=== PATIENT | female | born 1960 | race Caucasian/White ===

== ENCOUNTER 2021-12-30 09:45 | Outpatient (CLI) | payer OTHER, SELFPAY ==
--- NOTE | ~2021-12-30 | DEXA_ITS ---
Bone Density Report Name: JCARLOS GARCÍA Age: 61 Sex: Female Ethnicity: White Date of : 1960 Indication: postmenopausal; screening for osteoporosis; prior fracture; Referring Provider: MONICA, DREW Massey Study: Bone densitometry was performed. Exam Date: December 30, 2021 Accession number: [id number] Bone Density: Region BMD T-score Z-score Classification AP Spine(L1-L4) 1.006 -0.4 1.3 Normal Femoral Neck (Left) 0.686 -1.5 0.0 Osteopenia Total Hip (Left) 0.838 -0.8 0.3 Normal Femoral Neck (Right) 0.617 -2.1 -0.6 Osteopenia Total Hip (Right) 0.917 -0.2 1.0 Normal Total Hip Mean 0.877 -0.5 0.7 Normal World Health Organization criteria for BMD impression classify patients as: Normal (T-score at or above -1.0), Osteopenia (T-score between -1.0 and -2.5), or Osteoporosis (T-score at or below -2.5). 10-year Fracture Risk: FRAX not reported because: Prior hip or vertebral fracture Previous Exams: Region Exam Age BMD T-score BMD Change BMD Change Date g/cm2 vs Baseline vs Previous AP Spine (L1-L4) 12/30/2021 61 1.006 -0.4 0.029 (3.0%)* 0.029 (3.0%)* 07/19/2014 54 0.977 -0.6 Total Hip(Left) 12/30/2021 61 0.838 -0.8 -0.058 (-6.5%) -0.058 (-6.5%) 07/19/2014 54 0.897 -0.4 Total Hip(Right) 12/30/2021 61 0.917 -0.2 -0.058 (-6.0%) -0.058 (-6.0%) 07/19/2014 54 0.975 0.3 *Denotes significance at 95% confidence level, LSC for AP Spine = 0.022 g/cm2, LSC for Total Hip = 0.027 g/cm2 Clinical Information Provided by Patient: Have had a previous hip or vertebral fracture Has had a low trauma fracture Patient maximum height was 62 Menopause Age: 52 No regular weight bearing exercise Drinks caffeinated beverages Onset of menses at age 11 Number of children 2 Impression: The patient has low bone mass, based on the Right Femoral Neck T-score. The patient has risk factors, including: previous fracture. The BMD for the Total Hip(Left) decreased, changing by -6.5% since the last DXA exam. The BMD for the Total Hip(Right) decreased, changing by -6.0% since the last DXA exam. Discussion: INCREASED RISK OF FRACTURE DUE TO HISTORY OF FRACTURE. The patient's previous fracture puts the patient at high risk of a future fracture. In untreated patients, the risk of osteoporotic fracture increases approximately two-fold for each 1.0 SD decrease in T-score. Low bone density is not the only risk factor for fracture; also consider
--- NOTE | ~2021-12-30 | MM_ITS ---
EXAMINATION: MM screening arley BI w apryl HISTORY: Screening TECHNIQUE: Craniocaudal and mediolateral oblique 3-D tomosynthesis images were obtained and synthetic 2-D images were generated. CAD analysis was submitted and interpreted. COMPARISON: Comparison to multiple prior studies sequentially, with oldest reviewed study dated 07/2013. BREAST PARENCHYMAL COMPOSITION: The breasts are almost entirely fatty. FINDINGS: There is no evidence of suspicious mass, calcification, or architectural distortion to sugg est malignancy in either breast. There has been no suspicious interval change. IMPRESSION: 1. No mammographic evidence of malignancy. 2. Recommend routine screening mammography in one year. BI-RADS Category 1: Negative Reviewed, dictated and finalized at location A. [facility]
== END 2021-12-30 09:46 | disposition home or self-care (01) ==
LOC: ANHIMG 09:49
PROVIDERS: PCP Family Medicine; Visit Provider Nurse Practitioner
DX: Z12.31 Encounter for screening mammogram for malignant neoplasm of breast (principal); Z13.820 Encounter for screening for osteoporosis; M85.852 Other specified disorders of bone density and structure, left thigh; M85.851 Other specified disorders of bone density and structure, right thigh
CPT/HCPCS: 77063; 77067; 77080